=== PATIENT | male | born 1950 | race Caucasian/White ===

== ENCOUNTER → 2018-07-16 | Outpatient (CLI) | payer MEDICARE, OTHER ==
[~2018-07-16] MED LIST: ASPI-1471 PO; ASPI-879 PO; CETI10CA8 PO; DABI150C3 PO; FLE100 PO; GUAI600T57 PO; HORMONES; LORA10CA3 PO; MECL25TA9 PO; MULT1CAP59 PO; MULTIVITAMIN; ONDA4TAB PO; ONDA4TAB9 PO; PER PO; PRED20TA6 PO
--- NOTE | 2018-07-16 12:16 | RADIOLOGY IMAGING REPORT ---
FACILITY: [facility] PATIENT NAME: Flip aMtute : 1950 MR: [id number] V: [id number] EXAM DATE: ORDERING PHYSICIAN: DARIO VICTORIA TECHNOLOGIST: Location: Patient: Flip Matute : 1950 Visit/Account:[id number] Date of Sevice: 07/16/2018 WRIST LEFT MIN 3 VIEW History: Left wrist pain. Comparison study: None. Findings: There are prominent findings of joint space now with subchondral cirrhosis and bony prolif eration involving the triscaphe joint suggestive of osteoarthrosis. There is a subchondral cyst in t he scaphoid bone. Left prominent findings of osteoarthrosis involve the left first CMC joint. There are no findings of chondrocalcinosis. No calcified loose bodies are seen. There is a degenerative cyst in the capitate at the capitate lunate joint. IMPRESSION: 1. No findings of a fracture. 2. Findings of osteoarthrosis most prominent in the left triscaphe joint. Less prominent findings o f osteoarthrosis involve the left first CMC joint. Report Dictated By: Faustino Amador MD at 07/16/2018 12:10 PM Report E-Signed By: Faustino Amador MD at 07/16/2018 12:11 PM WSN:[email or web address]
== END ==
LOC: RAD 11:49
PROVIDERS: ATTEND Nurse Practitioner Family
DX: M19.032 Primary osteoarthritis, left wrist (principal)

== ENCOUNTER → 2018-08-04 | Outpatient (CLI) | payer MEDICARE, OTHER ==
--- NOTE | 2018-08-04 16:04 | RADIOLOGY IMAGING REPORT ---
FACILITY: [facility] [place] PATIENT NAME: Flip Matute : 1950 MR: [id number] V: [id number] EXAM DATE: ORDERING PHYSICIAN: BEVERLY MATUTE TECHNOLOGIST: Location: [facility] Patient: Flip Matute : 1950 Visit/Account:[id number] Date of Sevice: 08/04/2018 Exam type: XR THORACIC SPINE 3 V History: Middle back pain times months, degenerative disc disease in low back, history of cervical sp ine surgery Comparison: None. Findings: AP and lateral weightbearing views of the thoracic spine were submitted there post surgical changes f rom anterior fusion at C6-7. There is a 4 mm anterior listhesis of C7 with respect to T1. There is a gentle levoconvex scoliosis of the midthoracic spine. There is no gross evidence of acute fracture s. This mild disc space narrowing in the mid and lower thoracic spine with mild marginal spurring. Pacemaker leads project over the heart IMPRESSION: 1. There is a 4 mm anterior listhesis of C7 with respect to T1. Gentle levoconvex scoliosis of the mid lumbar spine Mild disc space narrowing seen in the mid and lower thoracic spine with mild marginal spurring Report Dictated By: Jen Mukherjee MD at 08/04/2018 3:56 PM Report E-Signed By: Jen Mukherjee MD at 08/04/2018 3:59 PM WSN:[email or web address]
--- NOTE | 2018-08-04 16:06 | RADIOLOGY IMAGING REPORT ---
FACILITY: [facility] [place] PATIENT NAME: Flip Matute : 1950 MR: [id number] V: [id number] EXAM DATE: ORDERING PHYSICIAN: BEVERLY MATUTE TECHNOLOGIST: Location: [facility] Patient: Flip Matute : 1950 Visit/Account:[id number] Date of Sevice: 08/04/2018 Exam type: L-SPINE COMPLETE W/BENDING History: Middle back pain times months, degenerative disc disease in low back Comparison: None. Findings: Six views of the lumbar spine were performed with weightbearing. There are five nonrib-bearing lumba r-type vertebral bodies present. There is a gentle dextro rotary scoliosis. There is no evidence of acute fractures or subluxations. There is moderate disc space narrowing from L3 to S1 mild disc spa ce narrowing at L2-3 mild to moderate disc space narrowing at L1-2. There are moderate degenerative facet joint changes at L4-5 and L5-S1. IMPRESSION: 1. Multilevel spondylotic changes of the lumbar spine as described Report Dictated By: Jen Mukherjee MD at 08/04/2018 3:59 PM Report E-Signed By: Jen Mukherjee MD at 08/04/2018 4:01 PM WSN:[email or web address]
== END ==
LOC: RAD 14:28
PROVIDERS: ATTEND Chiropractor
DX: M41.86 Other forms of scoliosis, lumbar region (principal); M51.34 Other intervertebral disc degeneration, thoracic region
CPT/HCPCS: 72072; 72114